=== PATIENT | female | born 1990 | race Caucasian/White ===

== ENCOUNTER → 2017-08-31 | Outpatient (CLI) | payer BC | END | disposition home or self-care (01) | LOC: C.PAPS 11:23 | PROVIDERS: ATTEND Physician Assistant | DX: Z01.419 Encounter for gynecological examination (general) (routine) without abnormal findings (principal) ==

== ENCOUNTER → 2017-08-31 | Outpatient (CLI) | payer BC | END | disposition home or self-care (01) | LOC: C.LABSPEC 10:46 | PROVIDERS: ATTEND Physician Assistant | DX: Z01.419 Encounter for gynecological examination (general) (routine) without abnormal findings (principal) ==

== ENCOUNTER 2022-11-19 07:48 | Inpatient (IN) ==
[2022-11-19] MEDS ORDERED: OXYTOCIN 30 UNITS/500 ML BAG IV PRN ×2 (09:20)
[2022-11-19] MEDS ORDERED: LIDOCAINE 1% LOCAL 20 ML VIAL INFIL PRN (09:20)
[2022-11-19] MEDS: LACTATED RINGER'S 1,000 ML IV PRN ×3 (09:46→19:52)
[2022-11-19 09:58] LABS: Hematocrit (blood only) 33.9 % (37.0-47.0); Hemoglobin 11.3 g/dl (12.0-16.0); Mean Corpuscular Hemoglobin 30.3 pg (25.0-34.0); Mean Corpuscular Hgb Conc 33.3 g/dL (32.0-36.0); Mean Corpuscular Volume 90.9 fL (80.0-100.0); Mean Platelet Volume 9.7 fL (9.4-12.4); Platelet Count 404 K/uL (130-400); RDW Coefficient of Variation 13.2 % (11.5-14.5); RDW Standard Deviation 43.4 fL (36.4-46.3); Red Blood Count 3.73 M/uL (4.20-5.40); White Blood Count 13.54 K/ul (4.8-10.8)
--- NOTE | 2022-11-19 10:25 | History & Physical Report ---
Date of Service November 19, 2022 Assessment & Plan (1) Insulin controlled gestational diabetes mellitus (GDM) during : Plan: IUP at 39 5/7 weeks with GDM on insulin presents for IOL will begin pitocin induction per protocol epidural when requested anticipate vaginal rubella vaccine Admission and Anticipated Discharge Date Admission Date: November 19, 2022 History of Present Illness Primary Care Provider: NO PCP Patient is a 32 female EDC11[birth year] who presents at 39 5/7 weeks for IOL because of GDM on insulin and suspected macrosomia. testing has been reassuring. Last growth scan shows EFW 82% and AC 92%. she took her pm insulin last night. GBS negative , Rubella -non-immune status. Allergies Allergy/AdvReac Type Severity Reaction Status Date / Time No Known Allergies Allergy Verified 11/18/22 11:07 Home Medications Medication Instructions Recorded Confirmed Type prenat.vits,michelle,[id number]-llip-[id number] 1 tab PO DAILY 03/23/22 11/18/22 History insulin NPH isoph U-100 human 100 8 unit (0.08 mL) subcut QPM #15 mL 10/13/22 11/18/22 Rx unit/mL (3 mL) subcutaneous pen (Humulin N NPH U-100 Insulin KwikPen) pen needle, diabetic 32 gauge x #50 ea 10/13/22 11/18/22 Rx 5/32" (BD Ultra-Fine Wen Pen Needle) Patient History Medical History Anemia Dysplastic nevus Lipid screening Neoplasm of uncertain behavior of skin Surgical History S/P wisdom tooth extraction Family History Grandmother (Maternal) Breast cancer Denies family history of Ovarian cancer Colorectal cancer Uterine cancer Social History Smoking Status: Never smoker Second Hand Exposure: No; Do You Dip or Chew Tobacco: No; Tobacco Cessation Education Requested by Patient: No Hx Alcohol Use: No Hx Substance Use: No Preferred Language: Greenlandic Bulk Filler Required: No Beliefs That Will Affect Care: None marital status: marital status details: Spouse: Andrea (30) [phone] Current Living Situation: Spouse Current Living Situation Comment: [place]- current occupational status: employed current occupation: [employer] Other Information That Helps Us Care for You: No Feels Safe at Home: Yes Safety Concerns: Feels Safe At This Time Assistive Devices: None Review of Systems All systems reviewed & are unremarkable except as noted in HPI & below Physical Exam Constitutional: WD/WN, vitals as above Psychiatric: A+Ox3, euthymic affect Genitourinary: OB Exam Abdomen: + vertex, + estimated weight (8-9 pounds) and + irregular contractions Manual OB Exam: + cervical dilation 3 cm, + cervical effacement 70% and + station -2 OB Exam Monitor Tracing: + external FHT monitor used, + external uterine monitor used, + category I and + normal FHT variability Results & Data Vital Signs (Past 12 Hours) Vital Signs Temp Pulse Resp BP 11/19/22 10:21 90 120/73 11/19/22 10:05 83 122/80 11/19/22 09:55 86 125/82 11/19/22 08:06 97 H 128/86 11/19/22 08:02 98.8 F 18 Code Status & VTE Plan VTE Prophylaxis Plan VTE Prophylaxis will be ordered: No Coding Level of Care Code None Diagnoses Insulin controlled gestational diabetes mellitus (GDM) during O24.414
[2022-11-19] MEDS ORDERED: ePHEDrine sulfate 50 MG/ML AMP ONE (14:02)
[2022-11-19] MEDS ORDERED: fentaNYL citrate PF 100 MCG/2 ML VIAL ONE (14:02)
[2022-11-19] MEDS ORDERED: SODIUM CHLORIDE 0.9% PF INJ 10 ML VIAL ONE (14:03)
[2022-11-19] MEDS ORDERED: BUPIVACAINE 0.25% PF 30 ML VIAL ONE (14:03)
[2022-11-19] MEDS ORDERED: LIDOCAINE 2%/EPINEPHRINE 1:200,000 20 ML SDV ONE (14:03)
[2022-11-19] MEDS ORDERED: fentaNYL 2MCG/ML ROPIVACAINE 1.25MG/ML 100 ML BAG EPI ONE (14:03)
[2022-11-19] MEDS ORDERED: fentaNYL 2MCG/ML ROPIVACAINE 1.25MG/ML 100 ML BAG EPI PRN (14:39)
[2022-11-19] MEDS ORDERED: NALOXONE HCL 1 MG in SODIUM CHLORIDE 0.9% 1000ML 1,000 ML IV PRN (14:39)
[2022-11-19] MEDS ORDERED: NALOXONE HCL 0.4 MG/1 ML VIAL/CARP IV PRN (14:39)
[2022-11-19] MEDS ORDERED: diphenhydrAMINE 50 MG/ML VIAL IV PRN (14:39)
[2022-11-19] MEDS ORDERED: ePHEDrine sulfate 50 MG/ML AMP IV PRN (14:39)
[2022-11-19] MEDS ORDERED: NALBUPHINE HCL INJ 10 MG/ML AMP IV PRN (14:39)
[2022-11-19] MEDS ORDERED: ONDANSETRON INJ 2 MG/ML 2 ML VIAL IV PRN (14:39)
--- NOTE | 2022-11-19 14:39 | Anesthesiology Consultation ---
Date of Service November 19, 2022 Assessment & Plan ASA ASA3 Proposed Anesthesia Anesthesia Type: Labor Epidural Risk / Benefits Reviewed With: PT / POA / Parent / Guardian, Accepts Plan and Informed Consent Obtained History Height/Weight Height: 5 ft 6 in Weight: 91.626 kg Allergies Allergy/AdvReac Type Severity Reaction Status Date / Time No Known Allergies Allergy Verified 11/18/22 11:07 Medications Home Medications Medication Instructions Recorded Confirmed Last Taken prenat.vits,michelle,jgs-ssbc-hqsjl 1 tab PO DAILY 03/23/22 11/18/22 Unknown insulin NPH isoph U-100 human 100 8 unit (0.08 mL) subcut QPM #15 mL 10/13/22 11/18/22 Unknown unit/mL (3 mL) subcutaneous pen (Humulin N NPH U-100 Insulin KwikPen) pen needle, diabetic 32 gauge x #50 ea 10/13/22 11/18/22 Unknown 5/32" (BD Ultra-Fine Wen Pen Needle) Active Medications Generic Name Dose Route Start Last Admin Trade Name Nery PRN Reason Stop Dose Admin Lactated Ringer's 1,000 mls @ 125 mls/hr 11/19/22 09:20 11/19/22 14:34 Lr IV 11/21/22 09:19 999 mls/hr .Q8H PRN Administration L&D Protocol Protocol Oxytocin 30 units in 500 mls @ 13 mls/hr 11/19/22 09:20 11/19/22 13:15 Pitocin IV 11/21/22 09:19 0.78 units/hr .Q24H PRN 13 mls/hr Labor Induction/Augmentation Titration Protocol 0.78 UNITS/HR Past Medical History Medical History Anemia Dysplastic nevus Lipid screening Neoplasm of uncertain behavior of skin Exercise / Class Metabolic Activity II 4-5 Yardwork/Stairs/Walk up hill Past Family History Family History Grandmother (Maternal) Breast cancer Denies family history of Ovarian cancer Colorectal cancer Uterine cancer Past Surgical History Surgical History S/P wisdom tooth extraction Past Anesthesia History No Hx of Anesthesia Complications and No Family Hx of Anesthesia Complications History of PONV No Hx of PONV and No Hx of Motion Sickness Social History Smoking Status: Never smoker Do You Dip or Chew Tobacco: No Hx Alcohol Use: No Hx Substance Use: No Review of Systems denies fever/cough/ colds/ chest pain/ SOB/ DARCI denies DARCI Physical Exam Vital Signs Last Vital Signs Temp 37.2 C 11/19/22 13:45 Pulse 66 11/19/22 15:11 Resp 18 11/19/22 13:45 BP 99/50 L 11/19/22 15:11 Pulse Ox 97 11/19/22 15:10 ENMT Mouth: no TMJ abnormality and no dentition abnormality Thyromental Distance: > or= 3.5 Finger Breadths Mallampati Class: II Neck neck extension not limited Respiratory normal respiratory effort; no respiratory distress Auscultation: lungs clear to auscultation bilaterally Cardiovascular Rate/Rhythm: regular rate and regular rhythm Neurologic moves all extremities Psychiatric Orientation: alert and oriented x 3 Testing Laboratory Results 11/19/22 09:06 11/19/22 08:26 POC Glucose 103 H
[2022-11-20] MEDS ORDERED: ACETAMINOPHEN 325 MG TAB PO PRN (00:11)
[2022-11-20] MEDS ORDERED: DIPHTHERIA/TETANUS/PERTUSSIS 0.5mL SYR/VIAL (Age 7+yrs) IM ONE (00:11)
[2022-11-20] MEDS ORDERED: OXYTOCIN 30 UNITS/500 ML BAG IV PRN (00:11)
[2022-11-20] MEDS ORDERED: oxyCODONE/ACETAMINOPHEN 5mg/325mg TAB PO PRN (00:11)
[2022-11-20] MEDS ORDERED: BENZOCAINE 20% AER SPR 82.5 GM CAN EXT PRN (00:11)
[2022-11-20] MEDS ORDERED: HYDROCORTISONE ACETATE 25 MG SUPP PR PRN (00:11)
[2022-11-20] MEDS ORDERED: bisacodyL 10 MG SUPP PR PRN (00:11)
--- NOTE | 2022-11-20 00:19 | Delivery Summary ---
Vaginal Delivery Summary Date of Service November 20, 2022 Vaginal Delivery Summary and 1st Degree LAC Patient is a 32-year-old G1, P0 female presents at 39-6/7 weeks for induction of labor because of GDM on insulin. She was begun on Pitocin induction protocol and membranes were then ruptured for clear fluid. She had effective epidural analgesia and progressed to full dilation. She pushed effectively over intact perineum for delivery of a viable male . After the head was delivered, the shoulders delivered with hyperflexion of the hips and without maternal effort. He was placed on the mother's abdomen for further attention and drying. He was vigorous crying and moving all 4 limbs. After obtaining cord blood, the placenta was expressed intact with a three-vessel cord. bleeding was controlled with dilute Pitocin and fundal massage. A first-degree vaginal and first-degree periclitoral lacerations were repaired with 3-0 chromic in the usual fashion. Estimated blood loss was 300 cc. Mother and were doing well after delivery. [facility] Vaginal Delivery Charge Delivery Type Details: and 1st Degree LAC
[2022-11-20] MEDS: IBUPROFEN 600 MG TAB PO PRN ×6 (00:41→23:59)
[2022-11-20] MEDS: LACTATED RINGER'S 1,000 ML IV PRN (03:37)
--- NOTE | 2022-11-20 07:45 | Obstetrical Progress Note ---
Date of Service November 20, 2022 Assessment & Plan (1) Encounter for care and examination after delivery: satisfactory course continue current care plan Subjective Ambulation: ambulating normally Voiding: no voiding problems Passing Gas:: Yes Diet Tolerance:: regular diet Lochia:: Moderate Feeding Type:: breast feeding had near syncopal episode after delivery now doing well ambulating to the bathroom Review of Systems All systems reviewed & are unremarkable except as noted in HPI & below Physical Exam Constitutional WD/WN, vitals as above Psychiatric A+Ox3, euthymic affect Genitourinary OB Exam Abdomen: + fundal height Fundus: + firm and + relation to umbilicus (2 below U) Results & Data Vital Signs (Past 12 Hours) Vital Signs Temp Pulse Resp BP Pulse Ox 11/20/22 02:00 99.1 F 18 11/20/22 01:30 20 11/20/22 00:45 18 11/20/22 00:30 18 11/20/22 00:15 18 11/20/22 01:00 18 11/20/22 00:00 20 11/20/22 03:36 93 H 121/69 11/20/22 03:10 108 H 107/57 L 11/20/22 03:05 110 H 114/56 L 11/20/22 03:00 96 H 100/56 L 11/20/22 02:55 98 H 98/53 L 11/20/22 02:50 102 H 94/50 L 11/20/22 02:45 100 H 96/54 L 11/20/22 02:40 102 H 103/56 L 11/20/22 02:35 103 H 92/55 L 11/20/22 02:30 103 H 95/53 L 11/20/22 02:25 102 H 92/51 L 11/20/22 02:20 103 H 99/54 L 11/20/22 02:15 101 H 97/57 L 11/20/22 02:09 95 H 93/54 L 11/20/22 01:59 107 H 112/61 11/20/22 01:44 129 H 129/64 11/20/22 01:29 125 H 131/70 11/20/22 01:15 121 H 140/77 11/20/22 00:59 114 H 117/61 11/20/22 00:44 113 H 113/57 L 11/20/22 00:30 125 H 128/60 11/20/22 00:15 126 H 152/83 H 11/19/22 23:59 109 H 117/67 11/19/22 23:55 108 H 97 11/19/22 23:50 119 H 97 11/19/22 23:45 114 H 97 11/19/22 23:40 120 H 98 11/19/22 23:35 134 H 98 11/19/22 23:30 131 H 97 11/19/22 23:28 136 H 139/72 11/19/22 23:25 146 H 97 11/19/22 23:20 145 H 100 11/19/22 23:15 122 H 97 11/19/22 23:13 115 H 125/64 11/19/22 23:10 151 H 99 11/19/22 23:05 119 H 98 11/19/22 23:03 99.3 F 11/19/22 23:00 113 H 18 99 11/19/22 22:55 106 H 97 11/19/22 22:52 122 H 89 L 11/19/22 22:50 120 H 98 11/19/22 22:45 125 H 98 11/19/22 22:43 115 H 125/71 11/19/22 22:40 129 H 97 11/19/22 22:35 110 H 99 11/19/22 22:30 116 H 20 99 11/19/22 22:28 113 H 135/78 11/19/22 22:25 101 H 99 11/19/22 22:20 92 H 97 11/19/22 22:15 107 H 96 11/19/22 22:13 93 H 113/58 L 11/19/22 22:10 109 H 97 11/19/22 22:05 98 H 98 11/19/22 22:00 98 H 18 97 11/19/22 21:59 93 H 131/77 11/19/22 21:55 92 H 97 11/19/22 21:50 100 H 96 11/19/22 21:45 109 H 97 11/19/22 21:44 99 H 139/85 11/19/22 21:40 86 97 11/19/22 21:35 96 H 97 11/19/22 21:30 89 20 96 11/19/22 21:28 86 129/73 11/19/22 21:25 87 97 11/19/22 21:20 90 97 11/19/22 21:03 99.1 F 11/19/22 21:15 80 98 11/19/22 21:13 78 130/72 11/19/22 21:10 88 98 11/19/22 21:05 88 99 11/19/22 21:00 86 20 98 11/19/22 20:58 82 128/69 11/19/22 20:55 93 H 98 11/19/22 20:50 90 98 11/19/22 20:45 79 96 11/19/22 20:42 86 121/63 11/19/22 20:40 103 H 98 11/19/22 20:35 88 97 11/19/22 20:30 87 18 97 11/19/22 20:28 85 112/61 11/19/22 20:25 92 H 95 11/19/22 20:23 90 94 11/19/22 20:20 93 H 98 11/19/22 20:15 91 H 98 11/19/22 20:13 90 119/71 11/19/22 20:10 88 98 11/19/22 20:05 84 96 11/19/22 20:00 89 18 96 11/19/22 19:57 90 135/65 11/19/22 19:55 84 98 11/19/22 19:50 92 H 98 11/19/22 19:45 90 98 11/19/22 19:43 93 H 136/64
[2022-11-20] MEDS: PRENATAL VITAMIN 1 TAB PO SCH (08:17)
[2022-11-20] MEDS: DOCUSATE SODIUM 100 MG CAP PO SCH ×2 (08:17→20:00)
--- NOTE | 2022-11-20 09:18 | Anesthesia Procedure Note ---
Date of Service November 20, 2022 Anesthesia Post Epidural Note Vital Signs Vital Signs: Temp Pulse Resp BP Pulse Ox O2 Del Method 36.9 C 80 16 120/77 99 Room Air 11/20/22 08:00 11/20/22 08:00 11/20/22 08:00 11/20/22 08:00 11/20/22 08:00 11/20/22 08:00 Pain Intensity Left Abdomen: Pain Intensity: 5 Lower Abdomen: Pain Intensity: 0 Notes Mental Status: alert / awake / arousable Nausea / Vomiting: adequately controlled Pain: adequately controlled Airway Patency, RR, SpO2: stable & adequate BP & HR: stable & adequate Hydration State: stable & adequate Neuraxial Anesthesia: was administered and sensory block is resolving Anesthetic Complications: no major complications apparent and Pt Satisfied with anesthetic care Epidural: Removed without complications and With tip intact
[2022-11-20] MEDS ORDERED: MEASLES, MUMPS & RUBELLA VIRUS VIAL SQ ONE (16:01)
[2022-11-21 07:28] LABS: Hematocrit (blood only) 27.1 % (37.0-47.0); Mean Corpuscular Hgb Conc 33.2 g/dL (32.0-36.0); Mean Corpuscular Volume 90.3 fL (80.0-100.0); Mean Platelet Volume 9.8 fL (9.4-12.4); Platelet Count 311 K/uL (130-400); RDW Coefficient of Variation 13.5 % (11.5-14.5); RDW Standard Deviation 44.4 fL (36.4-46.3); White Blood Count 16.99 K/ul (4.8-10.8)
--- NOTE | 2022-11-21 08:43 | Obstetrical Progress Note ---
Date of Service November 21, 2022 Assessment & Plan (1) Encounter for care and examination after delivery: Plan Doing well. Plan d/c. Instructions given. f/u 6 weeks. To monitor breast, feel more like breast tissue, structure than actual mass. To monitor and call with changes. Day #:: 1 Subjective Ambulation: ambulating normally Voiding: no voiding problems Passing Gas:: Yes Diet Tolerance:: regular diet Lochia:: Small Feeding Type:: breast feeding Pain controlled. She does note a ? issues with her right breast , noted about two weeks ago, not changing. Comes and goes Physical Exam Constitutional WD/WN, vitals as above Respiratory normal respiratory effort, lungs clear to auscultation Cardiovascular RRR, no murmur, no edema Extremities: no calf tenderness and no edema Chest (Breasts) Additional Comments: right upper lateral breast with a cord like palpable issue, no skin changes, no redness Results & Data Vital Signs (Past 12 Hours) Vital Signs Temp Pulse Resp BP Pulse Ox O2 Del Method 11/21/22 00:00 36.8 C 83 18 122/76 96 Room Air
[2022-11-21] MEDS: IBUPROFEN 600 MG TAB PO PRN (08:53)
[2022-11-21] MEDS: DOCUSATE SODIUM 100 MG CAP PO SCH (08:53)
[2022-11-21] MEDS: PRENATAL VITAMIN 1 TAB PO SCH (08:54)
[2022-11-21] MEDS ORDERED: bisacodyL 5 MG TABEC PO SCH (20:00)
== END 2022-11-21 11:00 | disposition home or self-care (01) | DRG 807 ==
LOC: 4S1 07:48 → 4E2 11-20 06:31
DX: O24.424 Gestational diabetes mellitus in childbirth, insulin controlled; O70.0 First degree perineal laceration during delivery; Z3A.39 39 weeks gestation of pregnancy; Z37.0 Single live birth; O92.20 Unspecified disorder of breast associated with pregnancy and the puerperium

== ENCOUNTER 2025-02-26 10:58 | Inpatient (IN) ==
[2025-02-26] MEDS ORDERED: OXYTOCIN 30 UNITS/NSS 30 UNITS/500 ML BAG IV PRN (19:43)
[2025-02-26] MEDS ORDERED: LIDOCAINE 1% LOCAL 20 ML VIAL INFIL PRN (19:43)
[2025-02-26] MEDS ORDERED: CALCIUM CARBONATE 500 MG CHEWABLE TAB PO PRN (19:43)
--- NOTE | 2025-02-26 19:49 | History & Physical Report ---
Date of Service February 26, 2025 Assessment & Plan (1) Post term over 40 weeks: (2) Encounter for induction of labor: Plan admit, start pitocin, arom done. fhts categ 1. desires early epidural. ok by me. Admission and Anticipated Discharge Date Admission Date: February 26, 2025 History of Present Illness Chief Complaint: planned induction Primary Care Provider: NO PCP 34yo at 40+wks marco antonio presents to LD for planned induction for postdates. No rom. No vb. +FM. No ctx. She does feel this baby is bigger than her last. PNC c/b 1. Prior preg with gdm, wanted retest in this and not gdm PNL rh pos, ri, gbs neg OBH: x 1, gdm on insulin GYNH: nl paps no stds Allergies Allergy/AdvReac Type Severity Reaction Status Date / Time No Known Allergies Allergy Verified 02/23/25 13:14 Home Medications Medication Instructions Recorded Confirmed Type [id number] PO 07/14/24 02/23/25 History [ Plus] breast pump #1 ea 12/27/24 02/23/25 Rx Patient History Medical History (Updated 02/26/25 @ 19:48 by Tracy Garcia MD, FACOG) Gestational diabetes mellitus (GDM) affecting , antepartum Chicken pox Insulin controlled gestational diabetes mellitus (GDM) during Gestational diabetes mellitus (GDM) Rubella non-immune status, antepartum Neoplasm of uncertain behavior of skin Dysplastic nevus Anemia Surgical History S/P wisdom tooth extraction Family History Grandmother (Maternal) Breast cancer Denies family history of Ovarian cancer Colorectal cancer Uterine cancer Social History Smoking Status: Never smoker Second Hand Exposure: No; Do You Dip or Chew Tobacco: No; Hx Alcohol Use: No Hx Substance Use: No Preferred Language: Yakut Communication Ability: Effective Organizational Development Director Required: No Beliefs That Will Affect Care: None marital status: marital status details: Andrea (33) [phone] Current Living Situation: Spouse Current Living Situation Comment: Lives with and son, 2 dogs current occupational status: employed 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[employer] How many Children do You have: 1 Other Information That Helps Us Care for You: No Feels Safe at Home: Yes Safety Concerns: Feels Safe At This Time Assistive Devices: None Review of Systems as per Subjective / HPI Physical Exam Constitutional: WD/WN, vitals as above Respiratory: normal respiratory effort, lungs clear to auscultation Cardiovascular: Rate/Rhythm: regular rate and regular rhythm Gastrointestinal (Abdomen): soft gravid nt efw 8-9# Musculoskeletal: no edema nontender calves Neurologic: grossly normal Psychiatric: A+Ox3, euthymic affect Genitourinary: Manual OB Exam: + cervical dilation 3 cm, + cervical effacement 50%, + station -2 (post soft) and + amniotic fluid (arom) clear OB Exam Monitor Tracing: + external FHT monitor used, + external uterine monitor used (irreg), + category I and + normal FHT variability Results & Data Vital Signs (Past 12 Hours) Vital Signs Temp Pulse Resp BP 02/26/25 19:28 97.9 F 18 02/26/25 19:25 108 H 135/81 Coding Level of Care Code None Diagnoses Post term over 40 weeks O48.0 Encounter for induction of labor Z34.90
[2025-02-26] MEDS: LACTATED RINGER'S 1,000 ML IV PRN (20:00)
[2025-02-26] MEDS: OXYTOCIN 30 UNITS/NSS 30 UNITS/500 ML BAG IV PRN (20:21)
[2025-02-26 20:28] LABS: Hematocrit (blood only) 36.2 % (37.0-47.0); Hemoglobin 12.1 g/dl (12.0-16.0); Mean Corpuscular Hemoglobin 30.4 pg (25.0-34.0); Mean Corpuscular Hgb Conc 33.4 g/dL (32.0-36.0); Mean Platelet Volume 10.2 fL (9.4-12.4); Platelet Count 321 K/uL (130-400); RDW Coefficient of Variation 13.5 % (11.5-14.5); RDW Standard Deviation 44.8 fL (36.4-46.3); Red Blood Count 3.98 M/uL (4.20-5.40); White Blood Count 14.16 K/ul (4.8-10.8)
[2025-02-26] MEDS ORDERED: BUPIVACAINE 0.25% PF 30 ML VIAL EPI PRN (20:40)
[2025-02-26] MEDS ORDERED: NALOXONE HCL 0.4 MG/1 ML VIAL/CARP IV PRN (20:40)
[2025-02-26] MEDS ORDERED: ONDANSETRON INJ 2 MG/ML 2 ML VIAL IV PRN (20:40)
[2025-02-26] MEDS ORDERED: NALBUPHINE HCL INJ 10 MG/ML AMP IV PRN (20:40)
[2025-02-26] MEDS ORDERED: SODIUM CHLORIDE 0.9% PF INJ 10 ML VIAL EPI PRN (20:40)
[2025-02-26] MEDS ORDERED: diphenhydrAMINE 50 MG/ML VIAL IV PRN (20:40)
[2025-02-26] MEDS ORDERED: ePHEDrine sulfate 50 MG/ML AMP IV PRN (20:40)
[2025-02-26] MEDS ORDERED: fentaNYL citrate PF 100 MCG/2 ML VIAL EPI PRN (20:40)
[2025-02-26] MEDS ORDERED: LIDOCAINE 2% MPF LOCAL 5 ML VIAL EPI PRN (20:40)
[2025-02-26] MEDS ORDERED: ROPIVACAINE 0.5% PF 5 MG/ML 20 ML VIAL EPI PRN (20:40)
[2025-02-26] MEDS ORDERED: NALOXONE HCL 1 MG in SODIUM CHLORIDE 0.9% 1,000 ML IV PRN (20:40)
--- NOTE | 2025-02-26 20:40 | Anesthesiology Consultation ---
Date of Service February 26, 2025 Assessment & Plan ASA ASA2 Proposed Anesthesia Anesthesia Type: Labor Epidural Risk / Benefits Reviewed With: PT / POA / Parent / Guardian, Accepts Plan and Informed Consent Obtained History Height/Weight Height: 5 ft 6 in Weight: 87.09 kg Allergies Allergy/AdvReac Type Severity Reaction Status Date / Time No Known Allergies Allergy Verified 02/23/25 13:14 Medications Home Medications Medication Instructions Recorded Confirmed Last Taken hcybjlsb-gfv-Lv-FA PO 07/14/24 02/23/25 Unknown [ Plus] breast pump #1 ea 12/27/24 02/23/25 Unknown Active Medications Generic Name Dose Route Start Last Admin Trade Name Freq PRN Reason Stop Dose Admin Fentanyl/Bupivacaine/Sodium Chlor 100 ml 02/26/25 20:40 02/26/25 21:06 Fentanyl 2 Mcg/Ml Bupivacaine 0.125%-Nss 100ml Bag EPI 02/27/25 20:39 100 ml PRN PRN Administration Pain R/T Labor Protocol Oxytocin 30 units in 500 mls @ 1 mls/hr 02/26/25 19:43 02/26/25 20:21 Pitocin 30 Units/Nss IV 02/28/25 19:42 0.06 units/hr .Q24H PRN 1 mls/hr Labor Induction/Augmentation Administration Protocol 0.06 UNITS/HR Lactated Ringer's 1,000 mls @ 125 mls/hr 02/26/25 19:43 02/26/25 20:00 Lr IV 02/28/25 19:42 125 mls/hr .Q8H PRN Administration L&D Protocol Protocol Past Medical History Medical History Gestational diabetes mellitus (GDM) affecting , antepartum Chicken pox Insulin controlled gestational diabetes mellitus (GDM) during Gestational diabetes mellitus (GDM) Rubella non-immune status, antepartum Neoplasm of uncertain behavior of skin Dysplastic nevus Anemia Exercise / Class Metabolic Activity II 4-5 Yardwork/Stairs/Walk up hill Past Family History Family History Grandmother (Maternal) Breast cancer Denies family history of Ovarian cancer Colorectal cancer Uterine cancer Past Surgical History Surgical History S/P wisdom tooth extraction Past Anesthesia History No Hx of Anesthesia Complications and No Family Hx of Anesthesia Complications History of PONV No Hx of PONV and No Hx of Motion Sickness Social History Smoking Status: Never smoker Do You Dip or Chew Tobacco: No Hx Alcohol Use: No Hx Substance Use: No Review of Systems denies fever/cough/ colds/ chest pain/ SOB/ DARCI denies DARCI Physical Exam Vital Signs Last Vital Signs Temp 36.6 C 02/26/25 19:28 Pulse 90 02/26/25 21:10 Resp 18 02/26/25 19:28 BP 121/70 02/26/25 21:10 Pulse Ox 96 02/26/25 21:06 ENMT Mouth: no TMJ abnormality and no dentition abnormality Thyromental Distance: > or= 3.5 Finger Breadths Mallampati Class: II Neck neck extension not limited Respiratory normal respiratory effort; no respiratory distress Auscultation: lungs clear to auscultation bilaterally Cardiovascular Rate/Rhythm: regular rate and regular rhythm Neurologic moves all extremities Psychiatric Orientation: alert and oriented x 3 Testing Laboratory Results 02/26/25 19:58
[2025-02-26] MEDS: BUPIVACAINE 0.25% PF 30 ML VIAL EPI STA (21:05)
[2025-02-26] MEDS: fentANYL 2 MCG/ML BUPIVacaine 0.125%-NSS 100ML BAG EPI PRN (21:06)
[2025-02-26] MEDS: fentaNYL citrate PF 100 MCG/2 ML VIAL EPI STA (21:06)
[2025-02-26] MEDS: fentaNYL citrate PF 100 MCG/2 ML VIAL ONE (22:16)
[2025-02-26] MEDS: BUPIVACAINE 0.25% PF 30 ML VIAL ONE (22:16)
[2025-02-26] MEDS: LIDOCAINE 2%/EPINEPHRINE 1:200,000 20 ML PF EPI STA (22:17)
[2025-02-26] MEDS: ePHEDrine sulfate 50 MG/ML AMP ONE (22:17)
[2025-02-26] MEDS: fentANYL 2 MCG/ML BUPIVacaine 0.125%-NSS 100ML BAG ONE (22:17)
[2025-02-26] MEDS: SODIUM CHLORIDE 0.9% PF INJ 10 ML VIAL EPI STA (22:17)
[2025-02-26] MEDS: SODIUM CHLORIDE 0.9% PF INJ 10 ML VIAL ONE (22:17)
[2025-02-26] MEDS: LIDOCAINE 2%/EPINEPHRINE 1:200,000 20 ML PF ONE (22:17)
--- NOTE | 2025-02-27 00:28 | Labor Progress Brief Note ---
Date of Service February 27, 2025 Subjective comfortable with epidural. Assessment & Plan (1) Post term over 40 weeks: (2) Encounter for induction of labor: Plan good cx change. c/w pit to keep labor pattern regular. fhts categ 1. Admission and Anticipated Discharge Date Admission Date: February 26, 2025 Physical Exam Constitutional: WD/WN, vitals as above Genitourinary: Manual OB Exam: + cervical dilation (5cm per nurse) OB Exam Monitor Tracing: + external FHT monitor used, + external uterine monitor used (q2-5 pit at 11), + category I and + normal FHT variability Results & Data Vital Signs (Past 12 Hours) Vital Signs Temp Pulse Resp BP Pulse Ox 02/27/25 00:24 92 H 94 02/27/25 00:21 92 H 94 02/27/25 00:16 85 94 02/27/25 00:13 93 H 104/62 94 02/27/25 00:11 94 H 94 02/27/25 00:06 95 02/27/25 00:06 88 02/27/25 00:06 79 94 02/27/25 00:01 83 94 02/26/25 23:59 77 107/61 02/26/25 23:57 84 94 02/26/25 23:56 101 H 94 02/26/25 23:52 94 H 94 02/26/25 23:51 90 94 02/26/25 23:46 93 H 94 02/26/25 23:45 89 94 02/26/25 23:43 86 111/62 02/26/25 23:41 90 94 02/26/25 23:36 96 H 94 02/26/25 23:32 85 94 02/26/25 23:31 85 95 02/26/25 23:28 83 110/63 02/26/25 23:26 100 H 95 02/26/25 23:25 96 H 94 02/26/25 23:21 90 95 02/26/25 23:18 87 94 02/26/25 23:16 99 H 95 02/26/25 23:14 82 106/61 02/26/25 23:12 87 94 02/26/25 23:11 88 93 02/26/25 23:06 94 02/26/25 23:06 95 H 02/26/25 23:06 96 H 94 02/26/25 23:01 97.5 F L 93 H 18 94 02/26/25 22:59 93 H 94 02/26/25 22:58 80 107/65 02/26/25 22:56 91 H 94 02/26/25 22:51 92 H 94 02/26/25 22:47 91 H 94 02/26/25 22:46 85 94 02/26/25 22:41 90 95 02/26/25 22:40 94 H 94 02/26/25 22:36 88 94 02/26/25 22:33 89 94 02/26/25 22:31 84 94 02/26/25 22:28 83 101/61 02/26/25 22:27 81 94 02/26/25 22:26 82 95 02/26/25 22:21 90 93 02/26/25 22:16 91 H 93 02/26/25 22:14 86 100/60 02/26/25 22:11 94 02/26/25 22:11 77 02/26/25 22:11 81 94 02/26/25 22:06 89 94 02/26/25 22:04 107 H 94 02/26/25 22:01 91 H 94 02/26/25 21:59 95 H 94 02/26/25 21:58 91 H 109/62 02/26/25 21:56 93 H 94 02/26/25 21:52 82 94 02/26/25 21:51 83 95 02/26/25 21:47 83 94 02/26/25 21:46 86 94 02/26/25 21:42 97 H 98/63 L 02/26/25 21:41 96 H 94 02/26/25 21:40 88 91/48 L 02/26/25 21:39 79 94 02/26/25 21:38 96 H 98/55 L 02/26/25 21:36 92 H 117/60 94 02/26/25 21:34 93 H 112/58 L 02/26/25 21:32 100 H 111/57 L 02/26/25 21:31 96 H 93 02/26/25 21:30 91 H 116/59 L 02/26/25 21:28 107 H 109/58 L 94 02/26/25 21:26 94 02/26/25 21:26 93 H 02/26/25 21:26 92 H 115/62 02/26/25 21:24 89 109/60 02/26/25 21:22 100 H 113/69 94 02/26/25 21:21 101 H 94 02/26/25 21:20 100 H 113/70 02/26/25 21:18 105 H 123/74 02/26/25 21:16 94 02/26/25 21:16 96 H 02/26/25 21:16 97 H 121/74 94 02/26/25 21:14 88 115/66 02/26/25 21:12 92 H 117/69 02/26/25 21:11 93 H 96 02/26/25 21:10 90 121/70 02/26/25 21:08 98 H 120/70 02/26/25 21:06 96 H 126/75 96 02/26/25 21:04 93 H 137/79 02/26/25 21:02 96 H 131/73 02/26/25 21:01 107 H 97 02/26/25 21:00 18 02/26/25 21:00 98.2 F 18 02/26/25 20:56 99 H 96 02/26/25 20:51 103 H 97 02/26/25 20:46 98 H 97 02/26/25 19:28 97.9 F 18 02/26/25 19:25 108 H 135/81 Coding Level of Care Code None Diagnoses Post term over 40 weeks O48.0 Encounter for induction of labor Z34.90
--- NOTE | 2025-02-27 04:00 | Delivery Summary ---
Vaginal Delivery Summary Date of Service February 27, 2025 Vaginal Delivery Summary The patient dilated to complete and pushed to deliver a viable male Apgars 8 and 9 via over small vaginal laceration. Mouth and nose bulb suctioned at perineum. Shoulders and body delivered with ease. Body cord noted. was vigorous and crying at . Cord clamped at 40 seconds of life and to maternal abdomen where the cord was then doubly clamped and cut. Placenta delivered spontaneously and intact, three-vessel cord. Hemostasis achieved with dilute pitocin and uterine massage. Cervix and sulci intact. Small left labial separation and small vagina laceration reapproximated with 4-0 vicryl. QBL 217 cc. Mother and baby stable in recovery. [facility] Vaginal Delivery Charge Delivery Type Details:
[2025-02-27] MEDS ORDERED: OXYTOCIN 30 UNITS/NSS 30 UNITS/500 ML BAG IV PRN (04:03)
[2025-02-27] MEDS ORDERED: HYDROCORTISONE ACETATE 25 MG SUPP PR PRN (04:03)
[2025-02-27] MEDS ORDERED: ACETAMINOPHEN 325 MG TAB PO PRN (04:03)
[2025-02-27] MEDS ORDERED: oxyCODONE/ACETAMINOPHEN 5mg/325mg TAB PO PRN (04:03)
[2025-02-27] MEDS: IBUPROFEN 600 MG TAB PO PRN (05:30)
--- NOTE | 2025-02-27 05:41 | Anesthesia Procedure Note ---
Date of Service February 27, 2025 Anesthesia Post Epidural Note Vital Signs Vital Signs: Temp Pulse Resp BP Pulse Ox 36.8 C 89 18 119/76 94 02/27/25 04:00 02/27/25 05:30 02/27/25 04:45 02/27/25 05:30 02/27/25 05:27 Notes Mental Status: alert / awake / arousable and participated in evaluation Nausea / Vomiting: adequately controlled Pain: adequately controlled Airway Patency, RR, SpO2: stable & adequate BP & HR: stable & adequate Hydration State: stable & adequate Neuraxial Anesthesia: was administered and sensory block resolved Anesthetic Complications: no major complications apparent and Pt Satisfied with anesthetic care Epidural: Removed without complications and With tip intact
[2025-02-27] MEDS: DOCUSATE SODIUM 100 MG CAP PO SCH (08:58)
[2025-02-27] MEDS: PRENATAL VITAMIN 1 TAB PO SCH (08:58)
[2025-02-27] MEDS: BENZOCAINE 20% SPRY 85 APPLN/85 GM CAN EXT PRN (08:58)
[2025-02-27] MEDS: DIPHTHER/TETAN/PERTUS Vaccine (Tdap, Adol/Adult) 0.5mL IM ONE (12:29)
[2025-02-27 22:10] VITALS: RESP 16
[2025-02-28 01:38] VITALS: TEMP 98.2
[2025-02-28] MEDS: OXYTOCIN 30 UNITS/NSS 30 UNITS/500 ML BAG IV PRN (02:36)
[2025-02-28] MEDS: OXYTOCIN 20 UNITS/LR 1,002 ML IV SCH (03:06)
--- NOTE | 2025-02-28 06:09 | Obstetrical Progress Note ---
Date of Service February 28, 2025 Assessment & Plan (1) Encounter for care and examination after delivery: Plan Pt is 34 yo post- day 1 s/p at 40w6d. was uncomplicated. Pt with PPH overnight with EBL at 1200. HBG this morning was 9.6. Discussed need for iron supplementation after having first BM post delivery. Pt verbalized understanding. Vitals are stable and HBG is above threshold for transfusion. Pt is asymptomatic. Will be ready to DC home this afternoon. - Encourage ambulation - Encourage breast feeding - Pain control with tylenol and ibuprofen - Begin iron supplementation after first BM following delivery - Anticipate DC today Admission and Anticipated Discharge Date Admission Date: February 26, 2025 Supervising Physician Co-Signing Physician Notes Resident Physician Supervision Note: I was present with Dr. Hall during the history and exam. I discussed the case with the resident and agree with the findings and plan as documented in the note. Any exceptions or clarifications are listed here: [None] Documented By: Johanne Islas MD, FACOG Subjective Pt is 34 yo post- day 1 s/p at 40w6d. Pt passed large clot followed by gushes of blood over night. Pt was given pitocin bolus followed by pitocin drip. This morning, she reports bleeding has slowed to minimal. She denies dizziness or lightheadedness, SOB or chest pain at rest of with short distances ambulation in her room. Ambulation:In room Voiding:voiding normally Passing gas: yes BM: no Diet tolerance:regular diet Lochia:bloody, no clots Feeding type: breast Current pain level:1-3 /10 improved with ibuprofen Resting comfortably this morning in NAD. Denies CALVERT, CP, N/V/D, LE pain/swelling. Review of Systems Review of Systems: As per HPI Physical Exam Constitutional: WD/WN, vitals as above Respiratory: normal respiratory effort, lungs clear to auscultation Cardiovascular: RRR, no murmur, no edema Gastrointestinal (Abdomen): normal bowel sounds, soft, nontender, no hepatosplenomegaly Uterine fundus firm and at 2 cm below level of umbilicus Neurologic: PERRL, EOMI, accommodation nl, no face palsy, no dysarthria Moving all 4 extremities on command Psychiatric: A+Ox3, euthymic affect Results & Data Vital Signs (Past 12 Hours) Vital Signs Temp Pulse Resp BP Pulse Ox O2 Del Method 02/28/25 04:00 36.8 C 81 16 123/81 98 Room Air 02/28/25 02:18 79 119/76 02/28/25 01:20 36.8 C 83 16 129/78 97 Room Air 02/28/25 00:46 88 124/81 02/28/25 00:00 36.6 C 89 16 118/73 98 Room Air 02/27/25 20:00 36.8 C 93 H 16 132/90 97 Room Air Resident Activity Tracking Resident Involvement: Resident Care Provided Care Provided: Adult Hospital Medicine
[2025-02-28 06:38] LABS: Hematocrit (blood only) 30.1 % (37.0-47.0); Hemoglobin 9.8 g/dl (12.0-16.0); Mean Corpuscular Hemoglobin 30.2 pg (25.0-34.0); Mean Corpuscular Hgb Conc 32.6 g/dL (32.0-36.0); Mean Corpuscular Volume 92.9 fL (80.0-100.0); Mean Platelet Volume 9.8 fL (9.4-12.4); Platelet Count 253 K/uL (130-400); RDW Coefficient of Variation 13.5 % (11.5-14.5); RDW Standard Deviation 45.9 fL (36.4-46.3); Red Blood Count 3.24 M/uL (4.20-5.40); White Blood Count 15.78 K/ul (4.8-10.8)
--- NOTE | 2025-02-28 07:16 | Obstetrical Progress Note ---
Date of Service February 28, 2025 Assessment & Plan Admission and Anticipated Discharge Date Admission Date: February 26, 2025 Subjective Entered several hours after event patient had a hemorrhage appr oximately 2 in the morning IV Pitocin was started was called to the bedside palpation of the uterus and firm pressure on the fundus resulted in expression of a large clot I then performed using a sterile glove bimanual internal exam no more clot could be found uterus was well-contracted bleeding improved substantially after this hemoglobin the morning was 9.6 patient advised to use iron and Colace Results & Data Vital Signs (Past 12 Hours) Vital Signs Temp Pulse Resp BP Pulse Ox O2 Del Method 02/28/25 04:00 98.2 F 81 16 123/81 98 Room Air 02/28/25 02:18 79 119/76 02/28/25 01:20 98.2 F 83 16 129/78 97 Room Air 02/28/25 00:46 88 124/81 02/28/25 00:00 97.9 F 89 16 118/73 98 Room Air 02/27/25 20:00 98.2 F 93 H 16 132/90 97 Room Air PG Care Time/CCT Total # of Minutes Spent Total Time Spent with Patient: Total time spent is greater than 50% in coordination of care (as documented) at patient's floor/unit and/or counseling patient: Coding Level of Care Code None
[2025-02-28 07:52] VITALS: BP 118/82; PULSE 80; O2SAT 97
[2025-02-28] MEDS ORDERED: bisacodyL 5 MG TABEC PO SCH (20:00)
== END 2025-02-28 11:35 | disposition home or self-care (01) | DRG 806 ==
LOC: 4S1 19:18 → 4E2 02-27 08:05